=== PATIENT | male | born 1950 | race Two or more races ===

== ENCOUNTER 2024-05-05 23:18 | Emergency (ER) | payer MEDICARE, MEDICAID, SELFPAY ==
[2024-05-05 23:19] VITALS: BMI 35.5
[2024-05-05 23:37] VITALS: BP 165/89; PULSE 115; RESP 18; TEMP 36.6; O2SAT 97
--- NOTE | 2024-05-05 23:43 | EKG_ITS ---
[facility] Test Date: 2024-05-05 Pat Name: ALEAH BABB Department: Room: - Gender: Male Veterans Services Specialist: : [id number] Requested By: Junito Wilkerson ([facility]) Order Number: [id number] Reading MD: Junito Wilkerson ([facility]) Measurements Intervals [place] Rate: 81 P: 13 HI: 160 QRS: -25 QRSD: 92 T: 46 QT: 341 QTc: 397 Interpretive Statements SINUS RHYTHM BORDERLINE LEFT AXIS DEVIATION [QRS AXIS < -20] Compared to ECG 07/09/2023 01:39:59 Atrial fibrillation no longer present Myocardial infarct finding no longer present /store/S0/[id number].pdf
--- NOTE | 2024-05-05 23:43 | XR_ITS ---
Examination: PA lateral chest 2 views Technique: Upright PA lateral chest 2 views Exam date and time: May 05, 2024 11:53 PM Comparison July 01, 2023 Indications: Onset chest pain today. Findings: Mild prominence cardiac contour Suspicious for early pneumonia in the lingular segment left upper lobe No pulmonary edema Intact osseous structures Impression: Suspicious for early pneumonia in the lingular segment left upper lobe
--- NOTE | 2024-05-05 23:43 | PD.EDRME ---
Rapid Medical Screening Exam RME Arrival date/time: 05/05/24 23:18 73-year-old male past medical history of hypertension and CAD currently on Plavix presents emergency department complaining of palpitations that started earlier today. Chief Complaint: Arrhythmia/Palpitations Vital signs: Vital Signs Temperature 97.8 F 05/05/24 23:37 Pulse Rate 115 H 05/05/24 23:37 Respiratory Rate 18 05/05/24 23:37 Blood Pressure 165/89 H 05/05/24 23:37 Pulse Oximetry (%) 97 05/05/24 23:37 Oxygen Delivery Method Room Air 05/05/24 23:37 Vital signs reviewed by provider: Yes
[2024-05-06 00:07] VITALS: BP 178/94; PULSE 75; RESP 20; O2SAT 97
[2024-05-06 00:34] LABS: Basophils # (Auto) 0.1 Thou/mm3 (0.0-0.2); Basophils % (Auto) 1 % (0-2.5); Eosinophils # (Auto) 0.4 Thou/mm3 (0.0-0.5); Eosinophils % (Auto) 3 % (0-10); Hematocrit 35.7 % (41.0-53.0); Hemoglobin 11.4 g/dL (13.5-16.0); Immature Granulocytes % (Auto) 0 % (0-0); Immature Granulocytes Auto 0.02 Thou/mm3 (0.00-0.00); Lymphocytes # (Auto) 3.8 Thou/mm3 (1.0-4.8); Lymphocytes % (Auto) 35 % (10-50); Mean Corpuscular HGB Conc 31.9 g/dl (31.0-37.0); Mean Corpuscular Hemoglobin 25.3 pg (25.0-35.0); Mean Corpuscular Volume 79 fL (80-100); Monocytes # (Auto) 1.1 Thou/mm3 (0.0-0.8); Monocytes % (Auto) 10 % (0-12); Neutrophils # (Auto) 5.4 Thou/mm3 (1.8-7.7); Neutrophils % (Auto) 50 % (37-80); Nucleated Red Blood Cell % 0 /100 WBC (0); Platelet Count 205 Thou/mm3 (140-440); RDW Standard Deviation 46.7 fL (35.1-43.9); Red Blood Count 4.51 Miln/mm3 (4.50-5.90); White Blood Count 10.8 Thou/mm3 (3.8-10.6)
[2024-05-06 00:43] LABS: Collection Type, Urine Clean Catch; Squamous Epithelial Cell,Urine 0 /hpf (0-5); WBC,Urine 0 /hpf (0-5)
[2024-05-06 00:44] LABS: B-Type Natriuretic Peptide 86 pg/mL (0-100)
[2024-05-06 00:48] LABS: Bilirubin,Urine Negative (Negative); Blood,Urine Negative (Negative); Clarity,Urine Clear (Clear/Hazy); Color,Urine Colorless (Lt Yel-Yel); Glucose, Urine Negative (Negative); Ketones,Urine Negative (Negative); Leukocyte Esterase,Urine Negative (Negative); Nitrite,Urine Negative (Negative); PH,Urine 7.5 (5.0-7.0); Protein,Urine Trace (Neg - Trace); RBC,Urine 1 /hpf (0-3); Specific Gravity,Urine 1.005 (1.001-1.035); Urobilinogen,Urine Negative mg/dL (0.0-1.0)
--- NOTE | 2024-05-06 00:49 | PD.EDARRY ---
ED Arrhythmia Palp. RME/HPI General Chief Complaint: Arrhythmia/Palpitations Stated Complaint: HTN Time Seen by Provider: 05/06/24 00:50 Source: patient Arrival date/time: 05/05/24 23:18 Mode of arrival: ambulatory Limitations: no limitations RME / HPI RME / HPI narrative: DR BELTRAN MAIN ED EVALUATION: 73-year-old male with a past medical history of hypertension and coronary artery disease (CAD), currently on Plavix, presenting to the Emergency Department with palpitations that began earlier today. He reports that he has been out of his blood pressure medications for the past two days. Related Data Home Medications ?Medication ?Instructions ?Recorded ?Confirmed glipizide 5 mg tablet 5 mg PO ACBR #0 tabs 06/06/15 12/05/17 metformin 1,000 mg tablet 1,000 mg PO QDAY #0 tabs 06/06/15 12/05/17 (Glucophage) lisinopril 40 mg tablet 40 ml PO BID #0 tabs 08/18/15 12/05/17 simvastatin 40 mg tablet (Zocor) 40 mg PO HS #0 tabs 08/18/15 12/05/17 aspirin 81 mg chewable tablet 1 tab PO DAILY 12/05/17 12/05/17 clopidogrel 75 mg tablet (Plavix) 75 mg PO QDAY 12/05/17 12/05/17 Previous Rx's ?Medication ?Instructions ?Recorded azelastine 137 mcg (0.1 %) nasal 2 spray intranasal QDAY #30 mL 12/11/21 spray cyclobenzaprine 5 mg tablet 5 mg PO TID PRN muscle spasm #14 02/21/23 tabs diclofenac sodium 1 % topical gel 2 g topical QID PRN pain #100 grams 02/21/23 (Arthritis Pain (diclofenac)) hydrocodone 5 mg-acetaminophen 325 1 tab PO Q6H PRN pain #14 tabs 02/21/23 mg tablet lidocaine 5 % topical patch 1 patch topical QDAY #15 ea 02/21/23 Allergies Allergy/AdvReac Type Severity Reaction Status Date / Time morphine Allergy Severe HIVES, Verified 07/09/23 01:31 SWOLLEN Review of Systems Review of Systems Systems Reviewed: All systems reviewed, normal except as documented Past Medical History Past Medical History CARDIAC: Positive Cardiac Disorders, Hypercholesterolemia and Hypertension; Negative Congestive Heart Failure RESPIRATORY: Negative Chronic Obstructive Pulmonary Disease (COPD) GENITOURINARY: Negative Renal Disease ENDOCRINE: Positive Endocrine Disorders and Diabetes Mellitus Type 1; Negative Diabetes Mellitus Type 2 Surgical History SURGICAL: Positive Coronary Stent Social History SMOKING STATUS: Never smoker ED Exam Narrative Physical exam: GENERAL APPEARANCE: alert and oriented x 4, well-developed, well-nourished, no acute distress VITALS: All vitals were reviewed and the pulse ox is 97% on room air, which is normal according to my interpretation. HEENT: Normocephalic, atraumatic; pupils equal, round, reactive to light; EOMI; mucous membranes pink, moist; oropharynx clear NECK: Supple LUNGS: CTABL; no wheezes, no rales, no rhonchi HEART: Regular rate, regular rhythm; normal S1, S2; no murmurs ABDOMEN: non distended; normal BS; soft, no tenderness, no guarding, no rebound; no masses, no organomegaly, no hernia BACK: no CVA tenderness EXTREMITIES: atraumatic; no edema NEUROLOGIC: awake; alert and oriented x4; cranial nerves II-XII grossly intact; no focal sensory or motor deficits PSYCHIATRIC: appropriate mood and affect SKIN: warm, dry, normal color; no rashes General Limitations: Present no limitations Course Course Course Narrative: CXR is ordered for determining etiology of chest pain. Quality Measures none Orders Category Date Time Status EKG (ED ONLY) *Do not use* NOW Care 05/05/24 23:43 Completed EKG (ED Only) Stat Exams 05/05/24 23:43 Draft XR chest 2V Stat Exams 05/05/24 23:43 Completed B-Type Natriuretic Peptide Stat Lab 05/05/24 23:58 Completed CBC Stat Lab 05/05/24 23:58 Completed Comprehensive Metabolic Panel Stat Lab 05/05/24 23:58 Received Drug Screen,Urine Stat Lab 05/06/24 00:12 Received Magnesium Stat Lab 05/05/24 23:58 Received Partial Thromboplastin Time Stat Lab 05/05/24 23:58 Received Prothrombin Time with INR Stat Lab 05/05/24 23:58 Received Troponin I Stat Lab 05/05/24 23:58 Received Urinalysis Stat Lab 05/06/24 00:12 Received Vital Signs Vital signs: Vital Signs Temperature 97.8 F 05/05/24 23:37 Pulse Rate 115 H 05/05/24 23:37 Respiratory Rate 18 05/05/24 23:37 Blood Pressure 165/89 H 05/05/24 23:37 Pulse Oximetry (%) 97 05/05/24 23:37 Oxygen Delivery Method Room Air 05/05/24 23:37 Arrhythmia/Palpitations MDM Narrative MDM Narrative:: Scribe Attestation: I, Katina Salazar, am scribing for and in the presence of Dr. Beltran. Provider Notation: Although this document has been carefully reviewed, there may still be some phonetic and other typographical errors. These errors are purely grammatical due to imperfections in the software program and should not be construed in any way to compromise the substance of the patient's medical care during this visit. Patient data External records reviewed:: [facility] previous records Clinical information provided by:: patient Social determinants that could affect healthcare access:: none Patient has the following chronic illnesses:: see PMH How is presenting disease/condition affected by chronic disease/condition?: uneffected by Evaluation data The following diagnostics were reviewed and interpreted by me:: lab results and radiology exam(s) Lab and/or radiology exams considered but not ordered:: na Interpretation Summary: Examination: PA lateral chest 2 views Technique: Upright PA lateral chest 2 views Exam date and time: May 05, 2024 11:53 PM Comparison July 01, 2023 Indications: Onset chest pain today. Findings: Mild prominence cardiac contour Suspicious for early pneumonia in the lingular segment left upper lobe No pulmonary edema Intact osseous structures Impression: Suspicious for early pneumonia in the lingular segment left upper lobe Dictated By: Dean Allred MD Medications / Prescriptions Medications or Prescriptions considered but not ordered:: na Medication administrations:: as above, if any Consultations Consultation(s) initiated? (list below): No Diagnosis Differential diagnosis arrhythmia/palpitations: palpitations, anxiety and sinus tachycardia Most likely diagnosis given after review of the tests above:: Palpitations Admission Indicated Admission indicated?: not indicated Admission Request Was there a request for admission?: No Disposition Plan Disposition Plan: Discharge Discharge Attestation Discharge Attestation: The patient and all family members were given an opportunity to ask questions and understood the discharge instructions. Discharge instructions specifically effects, indications for sooner follow up or return to the emergency department, and the expected course of current diagnosis. Patient condition: Stable Discharge Plan Plan Patient Disposition: HOME (Self Care) Prescriptions/Referrals Prescriptions/Med Rec: No Action metformin [Glucophage] 1,000 MG tablet 1,000 mg PO QDAY Qty: 0 glipizide 5 MG tablet 5 mg PO ACBR Qty: 0 simvastatin [Zocor] 40 MG tablet 40 mg PO HS Qty: 0 lisinopril 40 MG tablet 40 ml PO BID Qty: 0 clopidogrel [Plavix] 75 mg Tablet 75 mg PO QDAY aspirin 81 mg Tablet,Chewable 1 tab PO DAILY azelastine 137 mcg (0.1 %) aerosol,spray 2 spray intranasal QDAY Qty: 30 0RF Rx Instructions: administer into each nostril diclofenac sodium [Arthritis Pain (diclofenac)] 1 % gel 2 g topical QID PRN (Reason: pain) Qty: 100 0RF cyclobenzaprine 5 mg tablet 5 mg PO TID PRN (Reason: muscle spasm) Qty: 14 0RF lidocaine 5 % adhesive patch,medicated 1 patch topical QDAY Qty: 15 0RF Rx Instructions: leave on most painful area for up to 12 hrs hydrocodone-acetaminophen 5-325 mg tablet 1 tab PO Q6H MDD 9 PRN (Reason: pain) Qty: 14 0RF Referrals: No Primary/Family,Physician [Primary Care Provider] - In 1 week Problem List Clinical Impression: Palpitations Patient/Caregiver Discharge Instructions Education Materials: ED Palpitations Print Language: Wallisian Stand Alone Forms: Karrie Award Info., Patient Portal Info Letter
[2024-05-06 00:54] LABS: Alanine Aminotransferase 20 U/L (10-49); Albumin, Serum 4.8 gm/dL (3.4-4.8); Albumin/Globulin Ratio 1.5 (1.2-2.2); Alkaline Phosphatase 88 U/L (46-116); Anion Gap 10 (7-16); Aspartate Amino Transferase 21 U/L (0-34); BUN/Creatinine Ratio 22 Ratio (12-20); Bilirubin,Total 0.7 mg/dL (0.3-1.2); Blood Urea Nitrogen 22 mg/dL (9-23); Carbon Dioxide 25.8 mMol/L (20.0-31.0); Chloride 105 mMol/L (98-107); Estimated Creatinine Clearance 71.7 mL/min (>60); Globulin 3.2 gm/dL (2.3-3.5); Glucose 118 mg/dL (74-106); Osmolality,Calculated 285 (275-295); Potassium 4.2 mMol/L (3.4-5.1); Sodium 141 mMol/L (136-145); Troponin I < 0.020 ng/mL (0.0-0.045); eGFR > 60 See Note
[2024-05-06 01:36] VITALS: BP 138/70; PULSE 73
[2024-05-06] MEDS: LABETALOL 100 MG TABLET PO (01:36)
[2024-05-06 01:45] LABS: Amphetamine/Methamp Scrn,U Negative (Negative); Barbiturate Screen,Urine Negative (Negative); Benzodiazepines Screen,Urine Negative (Negative); Benzoylecgonine Screen, Ur Negative (Negative); Fentanyl Screen,Urine Negative (Negative); Opiate Screen,Urine Positive (Negative); THC Screen,Urine Negative (Negative)
[2024-05-06 02:15] LABS: Partial Thromboplastin Time 25.6 Seconds (22.0-36.0); Prothrombin Time 10.9 Seconds (9.0-12.2)
== END 2024-05-06 01:43 | disposition home or self-care (01) ==
PROVIDERS: Emergency Provider Emergency Medicine
DX: R00.2 Palpitations (principal); R07.9 Chest pain, unspecified; R94.31 Abnormal electrocardiogram [ECG] [EKG]
CPT/HCPCS: 36415; 71046; 80053; 80307; 81001; 83735; 83880; 84484; 85025; 85610; 85730; 93005; 99283; A9270

== ENCOUNTER → 2024-06-18 | Outpatient (CLI) | payer MEDICARE, MEDICAID, SELFPAY ==
--- NOTE | 2024-06-18 14:31 | XR_ITS ---
Examination: Knee, right , 3 views Technique: Knee AP, lateral, oblique 3 views Date and time of exam: June 18, 2024 1433 hrs. Indications: Right knee pain several years. Findings: Moderate to advanced tricompartment osteoarthritis, most severe medial joint space No fracture Small knee effusion Impression: Moderate to advanced tricompartment osteoarthritis
== END | disposition home or self-care (01) ==
LOC: CDIM 13:48
PROVIDERS: PCP Family Medicine; Referring Provider Family Medicine; Visit Provider Family Medicine
DX: M17.11 Unilateral primary osteoarthritis, right knee (principal)
CPT/HCPCS: 73562

== ENCOUNTER 2024-09-29 15:37 | Emergency (ER) | payer MEDICARE, MEDICAID, SELFPAY ==
[2024-09-29 15:38] VITALS: BMI 34.9
[2024-09-29 15:53] VITALS: BP 134/66; PULSE 65; RESP 20; TEMP 36.8; O2SAT 96
--- NOTE | 2024-09-29 15:56 | EDNOTE_ITS ---
Lower Extremity Injury RME/HPI General Chief Complaint: Back Pain/Injury Stated Complaint: LL BACK PAIN Time Seen by Provider: 09/29/24 15:46 Source: patient Arrival date/time: 09/29/24 15:37 74-year-old male with a history of hypertension, type 2 diabetes, hyperlipidemia presents to the emergency room with a chief complaint of lumbar back pain x 2 days Mode of arrival: ambulatory Limitations: no limitations Related Data Home Medications ?Medication ?Instructions ?Recorded ?Confirmed glipizide 5 mg tablet 5 mg PO ACBR #0 tabs 6 12/05/17 metformin 1,000 mg tablet 1,000 mg PO QDAY #0 tabs 12/05/17 (Glucophage) lisinopril 40 mg tablet 40 ml PO BID #0 tabs 6 12/05/17 simvastatin 40 mg tablet (Zocor) 40 mg PO HS #0 tabs 0 08/18/15 12/05/17 aspirin 81 mg chewable tablet 1 tab PO DAILY 12/05/17 12/05/17 clopidogrel 75 mg tablet (Plavix) 75 mg PO QDAY 12/05/17 Previous Rx's ?Medication ?Instructions ?Recorded azelastine 137 mcg (0.1 %) nasal 2 spray intranasal QD AY #30 mL 12/11/21 spray cyclobenzaprine 5 mg tablet 5 mg PO TID PRN muscle spa sm #14 02/21/23 tabs diclofenac sodium 1 % topical gel 2 g topical QID PRN pain #100 grams 02/21/23 (Arthritis Pain (diclofenac)) hydrocodone 5 mg-acetaminophen 325 1 tab PO Q6H PRN pa in #14 tabs 02/21/23 mg tablet lidocaine 5 % topical patch 1 patch topical QDAY #15 e a 02/21/23 Allergies Allergy/AdvReac Type Severity Reaction Status Date / Time morphine Allergy Severe HIVES, Verified 09/29/24 15:40 SWOLLEN Review of Systems Review of Systems Systems Reviewed: All systems reviewed, normal except as documented Constitutional Constitutional: Reports system reviewed and no additional complaints, except as documented, Denies fatigue, Denies fever(s), Denies headache(s) and Denies weakness Eyes Eyes: Reports system reviewed and no additional complaints, except as documented, Denies blurry vision and Denies change in vision ENT Ears, Nose, Mouth, and Throat: Reports system reviewed and no additional complaints, except as documented, Denies otalgia, Denies headache(s), Denies nasal congestion, Denies throat swelling and Denies vertigo Cardiovascular Cardiovascular: Reports system reviewed and no additional complaints, except as documented, Denies chest pain, Denies dyspnea and Denies dyspnea on exertion Respiratory Respiratory: Reports system reviewed and no additional complaints, except as documented, Denies chest congestion, Denies cough, Denies dyspnea, Denies dyspnea on exertion and Denies wheezing Gastrointestinal Gastrointestinal: Reports system reviewed and no additional complaints, except as documented, Denies abdominal pain, Denies cramping, Denies nausea and Denies vomiting Genitourinary Genitourinary: Reports system reviewed and no additional complaints, except as documented, Denies dysuria and Denies hematuria Musculoskeletal Musculoskeletal: Reports system reviewed and no additional complaints, except as documented, Reports back pain, Reports joint swelling and Reports limited range of motion Integumentary/Breasts Skin/Breast: Reports system reviewed and no additional complaints, except as documented and Denies wounds Neurologic Neurologic: Reports system reviewed and no additional complaints, except as documented, Denies confusion, Denies headache(s), Denies lack of coordination, Denies vertigo and Denies weakness Psychiatric Psychiatric: Reports system reviewed and no additional complaints, except as documented, Denies anxiety, Denies confusion, Denies depression, Denies paranoia, Denies suicidal ideation and Denies tactile hallucinations Endocrine Endocrine: Reports system reviewed and no additional complaints, except as documented and Denies fatigue Hematologic/Lymphatic Hematologic/Lymphatic: Reports system reviewed and no additional complaints, except as documented and Denies lymphadenopathy Allergic/Immunologic Allergic/Immunologic: Reports system reviewed and no additional complaints, except as documented, Denies throat swelling, Denies urticaria and Denies wheezing Past Medical History Past Medical History CARDIAC: Positive Cardiac Disorders, Hypercholesterolemia and Hypertension; Negative Congestive Heart Failure RESPIRATORY: Negative Chronic Obstructive Pulmonary Disease (COPD) GENITOURINARY: Negative Renal Disease ENDOCRINE: Positive Endocrine Disorders and Diabetes Mellitus Type 1; Negative Diabetes Mellitus Type 2 Surgical History SURGICAL: Positive Coronary Stent Social History SMOKING STATUS: Never smoker ED Exam General Limitations: Present no limitations General appearance: Present alert and in no apparent distress Head Head exam: Present atraumatic Eye Eye exam: Present normal appearance, PERRL and EOMI ENT ENT exam: Present normal exam, normal oropharynx and mucous membranes moist Neck Neck exam: Present normal inspection, full ROM and trachea midline Chest Chest inspection: Present normal inspection and symmetric chest wall rise Respiratory Respiratory exam: Present normal lung sounds bilaterally Cardiovascular Cardiovascular exam: Present regular rate, normal rhythm and normal heart sounds Abdominal Exam Abdominal exam: Present soft and normal bowel sounds Extremities Exam Extremities exam: Present normal inspection and full ROM Back Exam Back exam: Present normal inspection, full ROM and tenderness Back 1 view image: 2 1. Lumbar back pain Neurological Exam Neurological exam: Present alert, oriented X3 and CN II-XII intact Psychiatric Psychiatric exam: Present normal affect and normal mood Skin Skin exam: Present warm, dry, intact and normal color Course Quality Measures none Orders Category Date Time Status CT lumbar spine wo con Stat Exams 09/29/24 16:14 Completed Ketorolac Inj [Toradol Inj] Med 09/29/24 16:14 Discontinued 30 mg IM X1 ONE Vital Signs Vital signs: Vital Signs Temperature 98.2 F 09/29/24 15:53 Pulse Rate 65 09/29/24 15:53 Respiratory Rate 20 09/29/24 15:53 Blood Pressure 134/66 H 09/29/24 15:53 Pulse Oximetry (%) 96 09/29/24 15:53 Oxygen Delivery Method Room Air 09/29/24 15:53 Extremity Injury, Lower MDM Narrative MDM Narrative:: 74-year-old male with a history of hypertension, type 2 diabetes, hyperlipidemia presents to the emergency room with a chief complaint of lumbar back pain x 2 days Patient is hemodynamically stable and in no apparent distress Physical examination shows patient having some tenderness to the lumbar area of her spine with palpation. The patient denies any loss of bowel or bladder function. The patient denies any numbness to his lower extremities. The patient states he is having pain for the last 2 days that is significantly gotten worse. Patient states he has been dealing with this pain for over [address] of the lumbar spine was completed and showed some severe spinal stenosis, a central lumbar disc bulge, and some bilateral ganglionic compression. I spoke to the patient and told him that he will need to follow-up with his primary care provider for referral to neurosurgery for further management of this condition. The patient will also need to follow-up with the revenue tax specialist. The patient agreed with the plan and prior to disposition the patient was able to ambulate and had significant improvement after the Toradol injection. I spoke to Dr. Leary my attending physician and he agreed that the patient can be discharged with strict return precautions. Patient was discharged and educated to follow-up with primary care provider in the next 24 to 48 hours and return to the emergency room for any evidence of worsening signs or symptoms Patient data External records reviewed:: [facility] previous records Clinical information provided by:: patient Social determinants that could affect healthcare access:: none Patient has the following chronic illnesses:: No chronic illness How is presenting disease/condition affected by chronic disease/condition?: no chronic disease Evaluation data The following diagnostics were reviewed and interpreted by me:: lab results and radiology exam(s) Lab and/or radiology exams considered but not ordered:: Labs and radiology exams considered and ordered Interpretation Summary: CT abdomen pelvis-Findings: Severe osteopenia. Grade 1 anterolisthesis L4 on L5. Moderate disc narrowing L2-L3, L3-L4. No lumbar fracture. L5-S1 2 mm central lumbar disc bulge L4-L5 severe overall spinal stenosis, axial image 81, 6 mm central lumbar disc bulge, facet arthropathy and thickening of ligamenta flava circumferentially narrowing the thecal sac with moderate bilateral L4 ganglionic compression L3-L4 no disc protrusion L2-L3 no disc protrusion L1-L2 no disc protrusion Impression: No acute lumbar fracture. L4-L5 severe overall spinal stenosis Medications / Prescriptions Medications or Prescriptions considered but not ordered:: Medication given Medication administrations:: Medication Administration History Discontinued Medications Ketorolac Tromethamine (Ketorolac Inj 60 Mg/2 Ml Vial) 30 mg IM X1 ONE Stop: 09/29/24 16:15 Last Admin: 09/29/24 16:26 Dose: 30 mg Documented By: Medication given Consultations Consultation(s) initiated? (list below): No Diagnosis Extremity Injury, Lower Differential Diagnosis: other (Spinal stenosis/lumbar back sprain/lumbar back fracture) Most likely diagnosis given after review of the tests above:: Spinal stenosis Admission Indicated Admission indicated?: not indicated Admission Request Was there a request for admission?: No Disposition Plan Disposition Plan: Discharge Discharge Attestation Discharge Attestation: The patient and all family members were given an opportunity to ask questions and understood the discharge instructions. Discharge instructions specifically effects, indications for sooner follow up or return to the emergency department, and the expected course of current diagnosis. Patient condition: Stable Discharge Plan Plan Patient Disposition: HOME (Self Care) Discharge Disposition comment: Stable Prescriptions/Referrals Prescriptions/Med Rec: No Action metformin [Glucophage] 1,000 MG tablet 1,000 mg PO QDAY Qty: 0 glipizide 5 MG tablet 5 mg PO ACBR Qty: 0 simvastatin [Zocor] 40 MG tablet 40 mg PO HS Qty: 0 lisinopril 40 MG tablet 40 ml PO BID Qty: 0 clopidogrel [Plavix] 75 mg Tablet 75 mg PO QDAY aspirin 81 mg Tablet,Chewable 1 tab PO DAILY azelastine 137 mcg (0.1 %) aerosol,spray 2 spray intranasal QDAY Qty: 30 0RF Rx Instructions: administer into each nostril diclofenac sodium [Arthritis Pain (diclofenac)] 1 % gel 2 g topical QID PRN (Reason: pain) Qty: 100 0RF cyclobenzaprine 5 mg tablet 5 mg PO TID PRN (Reason: muscle spasm) Qty: 14 0RF lidocaine 5 % adhesive patch,medicated 1 patch topical QDAY Qty: 15 0RF Rx Instructions: leave on most painful area for up to 12 hrs hydrocodone-acetaminophen 5-325 mg tablet 1 tab PO Q6H MDD 9 PRN (Reason: pain) Qty: 14 0RF Referrals: Hipolito Larose MD [Primary Care Provider] - In 1 week Problem List Clinical Impression: Strain of lumbar region, Spinal stenosis of lumbar region Patient/Caregiver Discharge Instructions Education Materials: ED Back Sprain/Strain Additional Instructions: Por favor, consulte con sellers m?dico de cabecera en las pr?ximas 24 a 48 horas. Necesitar? buster derivaci?n a un especialista en [place] vertebral o a un neurocirujano para el tratamiento de sellers estenosis pisano y hernias discales. Ante cualquier signo de empeoramiento de los signos o s?ntomas, acuda a urgencias de inmediato. Print Language: Croatian Stand Alone Forms: Karrie Award Info., Patient Portal Info Letter PA/INDUSTRIAL YARD BRAKE COUPLER Supervising Physician PA/INDUSTRIAL YARD BRAKE COUPLER Supervising Physician: Dr. Leary
--- NOTE | 2024-09-29 16:14 | XR_ITS ---
Examination: CT lumbar spine, without contrast. 2-D sagittal reconstructions. 2-D coronal reconstructions. 3-D reconstructions. Date and time of exam:September 29, 2024, 1634 hrs. Indications: Lower back pain beginning 8 days ago CTDI: vol (mGy):33.9. DLP: (mGycm):992. Technique: Multiple 1.25 mm axial sections of the lumbar spine without intravenous contrast. have been obtained. 2-D sagittal and coronal reconstructions have been obtained. 3-D reconstructions have been obtained. Low dose protocols were performed. One or more of the following dose reduction techniques were used; automated exposure control, adjustment of the mA and/or KV according to patient size, use of iterative reconstruction technique. Findings: Severe osteopenia. Grade 1 anterolisthesis L4 on L5. Moderate disc narrowing L2-L3, L3-L4. No lumbar fracture. L5-S1 2 mm central lumbar disc bulge L4-L5 severe overall spinal stenosis, axial image 81, 6 mm central lumbar disc bulge, facet arthropathy and thickening of ligamenta flava circumferentially narrowing the thecal sac with moderate bilateral L4 ganglionic compression L3-L4 no disc protrusion L2-L3 no disc protrusion L1-L2 no disc protrusion Impression: No acute lumbar fracture. L4-L5 severe overall spinal stenosis
[2024-09-29] MEDS: KETOROLAC INJ 60 MG/2 ML VIAL 30 MG IM (16:26)
== END 2024-09-29 17:51 | disposition home or self-care (01) ==
PROVIDERS: Emergency Provider Emergency Medicine; PCP Family Medicine
DX: S39.012A Strain of muscle, fascia and tendon of lower back, initial encounter (principal); M48.061 Spinal stenosis, lumbar region without neurogenic claudication
CPT/HCPCS: 72131; 96372; 99283; J1885

== ENCOUNTER 2025-03-05 20:04 | Emergency (ER) | payer MEDICARE, MEDICAID, SELFPAY ==
--- NOTE | 2025-03-05 20:05 | PD.EDARRY ---
ED Arrhythmia Palp. RME/HPI General Chief Complaint: Arrhythmia/Palpitations Stated Complaint: RAPID HEART BEAT Time Seen by Provider: 03/05/25 20:23 Arrival date/time: 03/05/25 20:04 RME / HPI RME / HPI narrative: See [facility] for Dr. Griggs's HPI Documentation. Related Data Home Medications ?Medication ?Instructions ?Recorded ?Confirmed glipizide 5 mg tablet 5 mg PO ACBR #0 tabs 06/06/15 12/05/17 metformin 1,000 mg tablet 1,000 mg PO QDAY #0 tabs 06/06/15 12/05/17 (Glucophage) lisinopril 40 mg tablet 40 ml PO BID #0 tabs 08/18/15 12/05/17 simvastatin 40 mg tablet (Zocor) 40 mg PO HS #0 tabs 08/18/15 12/05/17 aspirin 81 mg chewable tablet 1 tab PO DAILY 12/05/17 12/05/17 clopidogrel 75 mg tablet (Plavix) 75 mg PO QDAY 12/05/17 12/05/17 Previous Rx's ?Medication ?Instructions ?Recorded azelastine 137 mcg (0.1 %) nasal 2 spray intranasal QDAY #30 mL 12/11/21 spray cyclobenzaprine 5 mg tablet 5 mg PO TID PRN muscle spasm #14 02/21/23 tabs diclofenac sodium 1 % topical gel 2 g topical QID PRN pain #100 grams 02/21/23 (Arthritis Pain (diclofenac)) hydrocodone 5 mg-acetaminophen 325 1 tab PO Q6H PRN pain #14 tabs 02/21/23 mg tablet lidocaine 5 % topical patch 1 patch topical QDAY #15 ea 02/21/23 diltiazem HCl 30 mg tablet 30 mg PO TID #90 tabs 03/05/25 (Cardizem) Allergies Allergy/AdvReac Type Severity Reaction Status Date / Time morphine Allergy Severe HIVES, Verified 03/05/25 20:07 SWOLLEN Review of Systems Review of Systems Systems Reviewed: All systems reviewed, normal except as documented Past Medical History Past Medical History CARDIAC: Positive Cardiac Disorders, Hypercholesterolemia and Hypertension ENDOCRINE: Positive Endocrine Disorders and Diabetes Mellitus Type 1 Surgical History SURGICAL: Positive Coronary Stent Social History SMOKING STATUS: Former smoker ED Exam Narrative Physical exam: See [facility] for Dr. Griggs's Physical Exam Documentation. Course Quality Measures none Arrhythmia/Palpitations [facility] Narrative [facility] Narrative:: This section includes all my notes and documentations, including HPI, PE, and ED course. 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 Patient was driving when the symptoms started. No syncope or near syncope. No CP. No other complaints. ROS: All negative except as documented in HPI. Physical Exam: General: Alert and oriented. No acute distress when remaining still. Eyes: Conjunctivae and lids clear. ENT: No nasal congestion. Neck: Supple. Heart: Irregularly irregular (113 bpm). Lungs: No respiratory distress. Good air movement. No rhonchi, wheezing, rales. Abdomen: Soft and nontender. Normal bowel sounds. No distension. No rebound or guarding. Back: No CVA tenderness. Skin: Warm and dry. Neuro: Alert and oriented X 3. I reviewed EMS notes. I reviewed all diagnostic test results: My interpretation of the EKG is: Atrial fibrillation with RVR (113 bpm) with nonspecific ST-T changes. My interpretation of the chest x-ray is equivocal vascular congestion. Blood/urine tests unremarkable. At this point, diagnoses include: Atrial fibrillation with RVR Treatment here included: Cardizem 20 mg IV Cardizem 30 mg PO Significant improvement noted. Recommended outpatient treatment. Based on my best medical judgment, made decision no further evaluation or treatment indicated at this time. Patient understands and agrees to the discharge instructions customized and printed, see below. Discharge instructions from Dr. Griggs: 1. You were treated today for very fast heart rate with atrial fibrillation which can be very dangerous. 2. Fortunately, there is no life-threatening condition. Such as heart attack or pulmonary embolism (blood clots in your lungs) or pneumothorax (collapsed lung). 3. Take Cardizem 30 mg every 8 hours (to prevent another episode) until seen by your school examiner. 4. See your school examiner on 03/07/2025 for recheck and further care. 5. Seek immediate medical care with worsening or with any concerns. Wayne Griggs MD Patient data External records reviewed:: [facility] previous records (Reviewed prior ED records from 09/29/24. Patient was seen for Spinal stenosis of lumbar region.) and EMS form Clinical information provided by:: patient and EMS Social determinants that could affect healthcare access:: none Patient has the following chronic illnesses:: Hypercholesterolemia, Hypertension, Diabetes Mellitus Type 1 How is presenting disease/condition affected by chronic disease/condition?: exacerbated by Evaluation data The following diagnostics were reviewed and interpreted by me:: lab results, radiology exam(s) and EKG tracing(s) (My interpretation of the EKG is: Atrial fibrillation with RVR (113 bpm) with nonspecific ST-T changes. Wayne Griggs MD) Lab and/or radiology exams considered but not ordered:: None Interpretation Summary: I reviewed all diagnostic test results: My interpretation of the EKG is: Atrial fibrillation with RVR (113 bpm) with nonspecific ST-T changes. My interpretation of the chest x-ray is equivocal vascular congestion. Blood/urine tests unremarkable. Medications / Prescriptions Medications or Prescriptions considered but not ordered:: None Medication administrations:: Treatment here included: Cardizem 20 mg IV Cardizem 30 mg PO Consultations Consultation(s) initiated? (list below): No Diagnosis Differential diagnosis arrhythmia/palpitations: palpitations, anxiety, sinus tachycardia, artial fibrillation, artial flutter, ventricular premature beats, supraventricular tachycardia and ventricular tachycardia Most likely diagnosis given after review of the tests above:: Atrial Fibrillation with RVR Admission Indicated Admission indicated?: not indicated Explain why admission is indicated or not indicated:: With significant improvement and no condition needing emergent intervention, there was no indication for admission. Admission Request Was there a request for admission?: No Disposition Plan Disposition Plan: Discharge Discharge Attestation Discharge Attestation: The patient and all family members were given an opportunity to ask questions and understood the discharge instructions. Discharge instructions specifically effects, indications for sooner follow up or return to the emergency department, and the expected course of current diagnosis. Patient condition: Stable Discharge Plan Plan Patient Disposition: HOME (Self Care) Prescriptions/Referrals Prescriptions/Med Rec: New diltiazem HCl [Cardizem] 30 mg tablet 30 mg PO TID Qty: 90 0RF No Action metformin [Glucophage] 1,000 MG tablet 1,000 mg PO QDAY Qty: 0 glipizide 5 MG tablet 5 mg PO ACBR Qty: 0 simvastatin [Zocor] 40 MG tablet 40 mg PO HS Qty: 0 lisinopril 40 MG tablet 40 ml PO BID Qty: 0 clopidogrel [Plavix] 75 mg Tablet 75 mg PO QDAY aspirin 81 mg Tablet,Chewable 1 tab PO DAILY azelastine 137 mcg (0.1 %) aerosol,spray 2 spray intranasal QDAY Qty: 30 0RF Rx Instructions: administer into each nostril diclofenac sodium [Arthritis Pain (diclofenac)] 1 % gel 2 g topical QID PRN (Reason: pain) Qty: 100 0RF cyclobenzaprine 5 mg tablet 5 mg PO TID PRN (Reason: muscle spasm) Qty: 14 0RF lidocaine 5 % adhesive patch,medicated 1 patch topical QDAY Qty: 15 0RF Rx Instructions: leave on most painful area for up to 12 hrs hydrocodone-acetaminophen 5-325 mg tablet 1 tab PO Q6H MDD 9 PRN (Reason: pain) Qty: 14 0RF Problem List Clinical Impression: Atrial fibrillation with RVR Patient/Caregiver Discharge Instructions Discharge Activity: activity as tolerated Education Materials: ED Atrial Fibrillation Additional Instructions: Instrucciones de sharla del Dr. Griggs: 1. Hoy recibi? tratamiento por buster frecuencia card?estelita muy r?pida con fibrilaci?n auricular, lo cual puede ser muy peligroso. 2. Afortunadamente, no presenta ninguna afecci?n que ponga en peligro sellers margarette, michelle un ataque card?aco, buster embolia pulmonar (co?gulos de joselito en los pulmones) o un neumot?rax (colapso pulmonar). 3. [place] Cardizem 30 mg cada 8 horas (para prevenir otro episodio) hasta que lo keny sellers cardi?logo. 4. Consulte con sellers cardi?logo el 07/03/2025 para buster revisi?n y seguimiento. 5. Busque atenci?n m?dica de inmediato si donna s?ntomas empeoran o si tiene alguna inquietud. Discharge instructions from Dr. Griggs: 1. You were treated today for very fast heart rate with atrial fibrillation which can be very dangerous. 2. Fortunately, there is no life-threatening condition. Such as heart attack or pulmonary embolism (blood clots in your lungs) or pneumothorax (collapsed lung). 3. Take Cardizem 30 mg every 8 hours (to prevent another episode) until seen by your school examiner. 4. See your school examiner on 03/07/2025 for recheck and further care. 5. Seek immediate medical care with worsening or with any concerns. Print Language: Turkmen Stand Alone Forms: Karrie Award Info., Patient Portal Info Letter
[2025-03-05 20:06] VITALS: BP 152/86; PULSE 92; RESP 18; TEMP 36.5; O2SAT 98
[2025-03-05 20:08] VITALS: PULSE 101; O2SAT 96; BMI 35.2
--- NOTE | 2025-03-05 20:10 | EKG_ITS ---
[facility] Test Date: 2025-03-05 Pat Name: ALEAH BABB Department: Room: - Gender: Male [employer] Libr[employer]: : 1950 Requested By: Wayne Salcedo Order Number: [id number] Reading MD: Wayne Salcedo Measurements Intervals [place] Rate: 113 P: MN: QRS: -5 QRSD: 100 T: 44 QT: 325 QTc: 447 Interpretive Statements ATRIAL FIBRILLATION WITH RAPID VENTRICULAR RESPONSE LOW QRS VOLTAGE IN PRECORDIAL LEADS [QRS DEFLECTION < 1.0 mV IN CHEST LEADS] POSSIBLE ANTERIOR MYOCARDIAL INFARCTION , PROBABLY OLD [30 ms Q WAVE IN V3/V4, OR R < 0.2 mV IN V4] ABNORMAL RHYTHM ECG Compared to ECG 05/05/2024 23:49:20 Low QRS voltage now present Myocardial infarct finding now present Sinus rhythm no longer present /store/[id number].pdf
--- NOTE | 2025-03-05 20:10 | XR_ITS ---
EXAMINATION: AP chest single view TECHNIQUE: AP portable upright chest single view Date and time: March 05, 2025, 2046 hours, comparison May 05, 2024 INDICATIONS: Shortness of breath today FINDINGS: Early heart failure Mild enlargement cardiac contour Prominent vascular congestion. Early edema at the lung bases Moderate osteopenia IMPRESSION: Early heart failure
[2025-03-05 20:21] VITALS: BP 122/99; PULSE 101
[2025-03-05] MEDS: DILTIAZEM INJ 5 MG/ML VIAL 5 ML 20 MG IV (20:21)
[2025-03-05 20:28] VITALS: PULSE 67
[2025-03-05 20:34] LABS: Collection Type, Urine Clean Catch
[2025-03-05 20:40] LABS: Basophils # (Auto) 0.1 Thou/mm3 (0.0-0.2); Basophils % (Auto) 1 % (0-2.5); Eosinophils # (Auto) 0.4 Thou/mm3 (0.0-0.5); Eosinophils % (Auto) 4 % (0-10); Hematocrit 31.7 % (41.0-53.0); Hemoglobin 10.0 g/dL (13.5-16.0); Immature Granulocytes Auto 0.03 Thou/mm3 (0.00-0.00); Lymphocytes # (Auto) 2.7 Thou/mm3 (1.0-4.8); Lymphocytes % (Auto) 28 % (10-50); Mean Corpuscular HGB Conc 31.5 g/dl (31.0-37.0); Mean Corpuscular Hemoglobin 26.2 pg (25.0-35.0); Mean Corpuscular Volume 83 fL (80-100); Monocytes # (Auto) 0.9 Thou/mm3 (0.0-0.8); Monocytes % (Auto) 9 % (0-12); Neutrophils # (Auto) 5.7 Thou/mm3 (1.8-7.7); Neutrophils % (Auto) 58 % (37-80); Nucleated Red Blood Cell # 0.00 Thou/mm3 (0.00-0.00); Nucleated Red Blood Cell % 0 /100 WBC (0); Platelet Count 213 Thou/mm3 (140-440); RDW Standard Deviation 42.4 fL (35.1-43.9); Red Blood Count 3.81 Miln/mm3 (4.50-5.90); White Blood Count 9.7 Thou/mm3 (3.8-10.6)
[2025-03-05 20:46] LABS: Bilirubin,Urine Negative (Negative); Blood,Urine Negative (Negative); Clarity,Urine Clear (Clear/Hazy); Color,Urine Lt-Yellow (Lt Yel-Yel); Culture Indicated,Urine Not Indicated; Glucose, Urine Negative (Negative); Ketones,Urine Negative (Negative); Leukocyte Esterase,Urine Negative (Negative); Nitrite,Urine Negative (Negative); PH,Urine 6.5 (5.0-7.0); Protein,Urine Trace (Neg - Trace); RBC,Urine 31 /hpf (0-3); Specific Gravity,Urine 1.015 (1.001-1.035); Squamous Epithelial Cell,Urine < 1 /hpf (0-5); Urobilinogen,Urine Negative mg/dL (0.0-1.0); WBC,Urine 1 /hpf (0-5)
[2025-03-05 20:52] LABS: D-Dimer 283 ng/mL (<600)
[2025-03-05 20:58] LABS: Glucose Estimated Average 154 mg/dL (80-131); Hemoglobin A1C 7.0 % Hgb (4.8-6.0)
[2025-03-05 21:02] LABS: Alanine Aminotransferase 21 U/L (10-49); Albumin, Serum 4.5 gm/dL (3.4-4.8); Albumin/Globulin Ratio 1.5 (1.2-2.2); Alcohol, Blood Medical < 3.0 mg/dL (0-10.0); Alkaline Phosphatase 91 U/L (46-116); Anion Gap 8 (7-16); Aspartate Amino Transferase 28 U/L (0-34); BUN/Creatinine Ratio 16 Ratio (12-20); Bilirubin,Direct 0.2 mg/dL (0.0-0.3); Bilirubin,Total 0.7 mg/dL (0.3-1.2); Blood Urea Nitrogen 25 mg/dL (9-23); Calcium 9.4 mg/dL (8.3-10.6); Calcium (Corrected) 9.4 mg/dL (8.5-10.1); Carbon Dioxide 23.4 mMol/L (20.0-31.0); Chloride 107 mMol/L (98-107); Creatinine (Component) 1.6 mg/dL (0.6-1.3); Estimated Creatinine Clearance 42.5 mL/min (>60); Globulin 3.0 gm/dL (2.3-3.5); Glucose 140 mg/dL (74-106); Magnesium 1.8 mg/dL (1.6-2.6); Osmolality,Calculated 282 (275-295); Potassium 4.7 mMol/L (3.4-5.1); Sodium 138 mMol/L (136-145); Thyroid Stimulating Hormone 14.00 uIU/mL (0.55-4.78); Total Protein 7.5 gm/dL (5.7-8.2); Troponin I < 0.020 ng/mL (0.0-0.045); eGFR 45 See Note
[2025-03-05 21:27] LABS: B-Type Natriuretic Peptide 201 pg/mL (0-100)
[2025-03-05 21:39] VITALS: BP 128/68; PULSE 71; RESP 18; O2SAT 99
[2025-03-05 21:46] VITALS: BP 135/67; PULSE 72
[2025-03-05] MEDS: DILTIAZEM 30 MG TABLET PO (21:46)
[2025-03-05 22:07] LABS: Free T3 2.7 pg/mL (2.3-4.2); Free T4 (Free Thyroxine) 1.10 ng/dL (0.89-1.76)
== END 2025-03-05 22:30 | disposition home or self-care (01) ==
LOC: SERX 22:22
PROVIDERS: Emergency Provider Emergency Medicine; PCP Family Medicine
DX: I48.91 Unspecified atrial fibrillation (principal); I10 Essential (primary) hypertension; I25.10 Atherosclerotic heart disease of native coronary artery without angina pectoris; Z79.01 Long term (current) use of anticoagulants; R09.89 Other specified symptoms and signs involving the circulatory and respiratory systems; E78.00 Pure hypercholesterolemia, unspecified; E10.9 Type 1 diabetes mellitus without complications
CPT/HCPCS: 36415; 71045; 80053; 80320; 81001; 82248; 83036; 83735; 83880; 84439; 84443; 84481; 84484; 85025; 85379; 87502; 87635; 93005; 99283; J3490; A9270; G0480